=== PATIENT | female | born 1930 | race Caucasian/White ===

== ENCOUNTER 2018-10-14 20:19 | Emergency (ER) | payer OTHER ==
[2018-10-14 20:27] VITALS: BP 172/92; PULSE 88; TEMP 97.2; BMI 17.9
--- NOTE | 2018-10-14 20:37 | PDOC ---
History of Present Illness - General History Source: Patient Exam Limitations: No Limitations - History of Present Illness Initial Comments: 10/14/18 21:15 The patient is an 88-year-old female present to the emergency department s/p fall. The patient reports she fell back and sustained a small cut to the back of her head. Denies LOC, neck pain, CAUSEY, nausea or vomiting. The patient is currently on Eliquis. PAST MEDICAL HISTORY: Afib, CVA, HTN PAST SURGICAL HISTORY: PPM, AVR FAMILY HISTORY: no pertinent history SOCIAL HISTORY: Pt lives with family. No tobacco use reported. MEDICATIONS: reviewed ALLERGIES: As per nursing notes General: No fevers or chills, no weakness, no weight loss HEENT: +laceration to the back of the head. No change in vision. No sore throat ,. No ear pain CardioVascular: No chest pain or shortness of breath Respiratory:No cough, or wheezing. Gastrointestinal: no nausea, vomiting, diarrhea or constipation, No rectal bleeding Genitourinary: No dysuria, hematuria, or frequency Musculoskeletal: No joint or muscle pain or swelling Neurologic: No headache, vertigo, dizziness or loss of consciousness Psychiatric: nor depression Skin: No rashes or easy bruising Endocrine: no increased thirst or abnormal weight change Allergic: no skin or latex allergy All other systems reviewed and normal GENERAL: The patient is awake, alert, and fully oriented, in no acute distress. HEAD: +small half a CM superficial laceration to the posterior occipital area, not actively bleeding. EYES: Pupils equal, round and reactive to light, extraocular movements intact, sclera anicteric, conjunctiva clear. EXTREMITIES: Normal range of motion, no edema. Back: No cervical spine tenderness to palpation. NEUROLOGICAL: Normal speech, normal gait. PSYCH: Normal mood, normal affect. SKIN: Warm, Dry, normal turgor, no rashes or lesions noted. Documentation prepared by Eli Bravo, acting as medical data analyst for Arnav Kasper MD. <Eli Bravo - Last Filed: 10/14/18 21:15> - General History Source: Patient Exam Limitations: No Limitations - History of Present Illness Initial Comments: A portion of this note was documented by scribe services under my direction. I have reviewed the details of the note, within reason, and agree with the documentation with the following case summary and management plan written by me. Patient treated in the ED. Nursing notes are reviewed and incorporated into the medical decision-making. Vital signs reviewed. Procedure note repair of laceration with Dermabond Laceration was cleaned with peroxide and closed with Dermabond patient tolerated well Assessment and plan: This is an 88-year-old female who sustained a mechanical trip and fall hitting the back of her head. Patient had a very small laceration to the back of her head that I closed with Dermabond. Patient had a head CT that was negative for any acute intracranial pathology Patient given Dermabond and head injury discharge instructions and discharged home with her family. 10/14/18 21:16 10/14/18 21:29 <Arnav Kasper I - Last Filed: 10/14/18 21:30> - General Chief Complaint: Injury Stated Complaint: HEAD INJURY Time Seen by Provider: 10/14/18 20:37 Past History <Eli Bravo - Last Filed: 10/14/18 21:15> - Past Medical History Cardiac Disorders: Yes (AFIB) CVA: Yes COPD: No HTN: Yes - Surgical History Cardiac Surgery: Yes (AVR, PPM) - Suicide/Smoking/Psychosocial Hx Smoking History: Never smoked <Arnav Kasper I - Last Filed: 10/14/18 21:30> - Past Medical History Allergies/Adverse Reactions: Allergies Allergy/AdvReac Type Severity Reaction Status Date / Time No Known Allergies Allergy Unverified 10/14/18 20:20 Home Medications: Ambulatory Orders Apixaban [Eliquis] 2.5 mg PO BID 10/14/18 Olmesartan Medoxomil [Benicar (Nf)] 20 mg PO DAILY 10/14/18 *Physical Exam - Vital Signs Last Vital Signs Temp Pulse Resp BP Pulse Ox 97.2 F L 88 16 172/92 H 100 10/14/18 20:21 10/14/18 20:21 10/14/18 20:21 10/14/18 20:21 10/14/18 20:21 <Eli Bravo - Last Filed: 10/14/18 21:15> - Vital Signs Last Vital Signs Temp Pulse Resp BP Pulse Ox 97.2 F L 88 16 172/92 H 100 10/14/18 20:21 10/14/18 20:21 10/14/18 20:21 10/14/18 20:21 10/14/18 20:21 <Arnav Kasper I - Last Filed: 10/14/18 21:30> Moderate Sedation - Procedure Monitoring Vital Signs: Procedure Monitoring Vital Signs Temperature 97.2 F L 10/14/18 20:21 Pulse Rate 88 10/14/18 20:21 Respiratory Rate 16 10/14/18 20:21 Blood Pressure 172/92 H 10/14/18 20:21 O2 Sat by Pulse Oximetry (%) 100 10/14/18 20:21 <Eli Bravo - Last Filed: 10/14/18 21:15> - Procedure Monitoring Vital Signs: Procedure Monitoring Vital Signs Temperature 97.2 F L 10/14/18 20:21 Pulse Rate 88 10/14/18 20:21 Respiratory Rate 16 10/14/18 20:21 Blood Pressure 172/92 H 10/14/18 20:21 O2 Sat by Pulse Oximetry (%) 100 10/14/18 20:21 <Arnav Kasper I - Last Filed: 10/14/18 21:30> *DC/Admit/Observation/Transfer <Eli Bravo - Last Filed: 10/14/18 21:15> - Discharge Dispostion Decision to Admit order: No <Arnav Kasper I - Last Filed: 10/14/18 21:30> Diagnosis at time of Disposition: Fall Qualifiers: Encounter type: initial encounter Qualified Code(s): W19.XXXA - Unspecified fall, initial encounter Laceration of scalp Qualifiers: Encounter type: initial encounter Qualified Code(s): S01.01XA - Laceration without foreign body of scalp, initial encounter - Discharge Dispostion Disposition: HOME Condition at time of disposition: Stable - Patient Instructions Printed Discharge Instructions: DI for Laceration Repair With Dermabond Additional Instructions: Read over and follow laceration repair with Dermabond instructions. Someone to check on you once tonight during the night. You should be arousable to your normal level of arousability for that time of the night. If you are vomiting, have a seizure, or you are unable to be aroused , 911 should be called and your should be brought back to the emergency department. Take Tylenol as needed for pain. Return to the emergency department immediately with ANY new, persistent or worsening symptoms. Continue any medications as previously prescribed by your physician. You should follow up with your primary doctor as soon as possible regarding today's emergency department visit. . Please make sure your doctor reviews the results of your emergency evaluation. Thank you for coming to the Emergency Department today for your care. It was a pleasure to see you today. Please note that your evaluation is INCOMPLETE until you follow-up with your doctor.
== END 2018-10-14 21:32 | disposition home or self-care (01) ==
LOC: FER 20:19
PROC: 0HQ1XZZ Repair Face Skin, External Approach (ICD-10-PCS; principal; 2018-10-14)
DX: S01.81XA Laceration without foreign body of other part of head, initial encounter (principal); Y04.2XXA Assault by strike against or bumped into by another person, initial encounter; Y93.22 Activity, ice hockey; Y92.330 Ice skating rink (indoor) (outdoor) as the place of occurrence of the external cause; Y99.9 Unspecified external cause status
CPT/HCPCS: 70450-TC; 99281-25